=== PATIENT | male | born 1980 | race Caucasian/White ===

== ENCOUNTER 2024-11-02 17:03 | Emergency (ER) | payer BC ==
[2024-11-02] MEDS: Amoxicillin 500 MG Cap PO STA (19:24)
== END 2024-11-02 19:27 | disposition home or self-care (01) ==
LOC: MW.ED 17:03
DX: T16.1XXA Foreign body in right ear, initial encounter (principal); J45.909 Unspecified asthma, uncomplicated; Z86.16 Personal history of COVID-19; Z87.891 Personal history of nicotine dependence; Z90.49 Acquired absence of other specified parts of digestive tract; Z79.899 Other long term (current) drug therapy; Z75.8 Other problems related to medical facilities and other health care
CPT/HCPCS: 69200; 99282; A9270

== ENCOUNTER 2025-03-22 10:55 | Emergency (ER) | payer BC ==
[2025-03-22] MEDS: Acetaminophen/oxyCODONE 325-5 MG Tab PO ONE (11:56)
== END 2025-03-22 13:55 | disposition home or self-care (01) ==
LOC: MW.ED 10:55
DX: S20.219A Contusion of unspecified front wall of thorax, initial encounter (principal); J45.909 Unspecified asthma, uncomplicated; Z90.49 Acquired absence of other specified parts of digestive tract; X58.XXXA Exposure to other specified factors, initial encounter
CPT/HCPCS: 71110; 72100; 99283; A9270